=== PATIENT | male | born 1965 | race Caucasian/White ===

== ENCOUNTER 2019-01-01 21:43 | Inpatient (IN) | payer OTHER ==
[~2019-01-01] VITALS: Ht 190.5 cm; Wt 163.3 kg
[2019-01-01 21:58] VITALS: Ht 190.5 cm; Wt 163.3 kg
--- NOTE | 2019-01-01 22:36 | NUR ---
DR BALDWIN AT BEDSIDE FOR MSE.
--- NOTE | 2019-01-01 22:36 | NUR ---
ATTEMPTED IV ACCESS X2, UNSUCCESSFUL. MADE AWARE.
[2019-01-01] MEDS ORDERED: APAP500 MG PO (23:10)
[2019-01-01] MEDS ORDERED: ASPIR 8181 MG PO (23:11)
[2019-01-01] MEDS ORDERED: HYDRALAZINE HY100 MG PO (23:11)
[2019-01-01] MEDS ORDERED: NOR5 PO (23:11)
[2019-01-01] MEDS ORDERED: ISO300 PO (23:12)
[2019-01-01] MEDS ORDERED: ZESTRIL40 MG PO (23:13)
[2019-01-01] MEDS ORDERED: XOPENEX HF0.045 MG/1 IH ×2 (23:13)
[2019-01-01] MEDS ORDERED: METOPROLOL TART50 MG PO (23:16)
[2019-01-01] MEDS ORDERED: LIALDA1.2 GM PO (23:16)
[2019-01-01] MEDS ORDERED: VITAMIN B-650 M1 PO (23:17)
[2019-01-01] MEDS ORDERED: PRIFTIN150 MG PO (23:17)
[2019-01-01] MEDS ORDERED: ASMANEX TW0.22 MG/A1 IH (23:17)
[2019-01-01] MEDS ORDERED: DYA PO (23:18)
--- NOTE | 2019-01-01 23:21 | NUR ---
CABLE REELER AT BEDSIDE FOR BLOOD DRAW.
[2019-01-01 23:34] LABS: BASOPHIL % 1.1 % (0-2); PLATELET COUNT 204 x10^3mcL (130-400)
[2019-01-01 23:42] LABS: CALCIUM 9.1 mg/dL (8.5-10.1); CARBON DIOXIDE 29.7 mmol/L (21-32); CHLORIDE SERUM 106 mmol/L (98-107); CREATININE SERUM 0.9 mg/dL (0.7-1.3); GFR1 > 60 mL/min; GLUCOSE SERUM 90 mg/dL (74-106); POTASSIUM SERUM 4.3 mmol/L (3.5-5.1); SODIUM SERUM 143 mmol/L (136-145)
[2019-01-01 23:46] LABS: RED CELL DISTRIBUTION WIDTH 14.7 % (11.5-14.5)
[2019-01-01 23:47] LABS: ALBUMIN 3.7 g/dL (3.4-5.0); ALKALINE PHOSPHATASE 64 U/L (46-116); ALT/SGPT 22 U/L (16-63); AST/SGOT 19 U/L (15-37); BILIRUBIN TOTAL 0.3 mg/dL (0.20-1.00); TOTAL PROTEIN, SERUM 7.7 g/dL (6.4-8.2)
--- NOTE | 2019-01-01 23:59 | NUR ---
PT GIVEN NITRO SL FOR 4/10 CHEST PAIN. B/P 159/91 (129).
[2019-01-02] VITALS (13 sets, daily range): BP systolic 98–156; BP diastolic 39–101
--- NOTE | 2019-01-02 00:03 | NUR ---
AFTER RECEIVING 1 DOSE OF NITRO PAIN HAS DECREASED PAIN, 2/10. PT STATES HE DOESN'T WANT ANOTHER DOSE, PAIN LEVEL TOLERABLE.
--- NOTE | 2019-01-02 01:16 | NUR ---
PT CALM IN BED AT THIS TIME. PT STATES NO CHEST PAIN AT THIS TIME. BREATHING EVEN AND UNLABORED. NO SOB NOTED. AAOX4, SPEECH CLEAR. WILL GIVE REPORT FOR PT TRANSFER.
--- NOTE | 2019-01-02 01:24 | NUR ---
GAVE REPORT TO CRUZ KINNEY. ALL QUESTIONS AND CONCERNS ADDRESSED.
[2019-01-02 01:56] LABS: CHOLESTEROL/HDL RATIO 5.3; MAGNESIUM 2.2 mg/dL (1.8-2.4)
--- NOTE | 2019-01-02 02:10 | NUR ---
PT TRANSFERRED TO TELE FLOOR. ACCOMPANIED BY EMT, NURSE, AND [facility] OFFICERS. NO S/SX OF DISTRESS NOTED. RESPIRATIONS E/U. IV SITE PATENT, NO SIGNS OF INFILTRATION. PT CONNECTED TO FRONT MAKER LOCKSTITCH DURING TRANSFER. RN AT BEDSIDE TO ASSUME CARE.
--- NOTE | 2019-01-02 02:20 | NUR ---
[facility] BY ER STAFFS WITH THE CHIEF COMPLAINTS OF CHEST PAIN X 3DAYS. PLACED COMFORTABLY IN BED. ROUTINE ADMISSION CARE RENDERED. VITAL SIGNS TAKEN AND RECORDED. ON TELE #11 SJOW NST AT 67=79/MIN. DENIES ANY CHEST PAIN/DISCOMFORT AT THIS TIME. IV SITE AT THE LAC G#20 INTACT AND PATENT. NO REDNESS/SWELLING NOTED. SDKIN WARM AND DRY TO [facility]. NO SKIN BREAKDOWN NOTED. WILL CONTINUE TO MONITOR.
--- NOTE | 2019-01-02 03:17 | NUR ---
BP UPON ADM TO THE PINZ=[phone]. PT STATED VERY ANXIOUS, ASKING FOR ANXIETY PILL/SLEEPING PILL, ATIVAN 1MG PO GIVEN/AMBIEN TAB GIVEN PO REQUESTED. MORPHINE 2MG IVP ON SCALE 8/10 GOT GENERALIZED BODY PAIN. KEPT CLEAN AND DRY.
--- NOTE | 2019-01-02 03:50 | NUR ---
BP CHECKED 143/85, PAIN LEVEL 0/10, KEPT CLEAN AND DRY. ALL NEEDS ATTENDED.
--- NOTE | 2019-01-02 06:20 | NUR ---
TOLERATED ORAL FLUIDS. NO S/S OF ASPIRATION NOTED. DENEIS ANY CHEST PAIN/DISCOMFORT AT THIS TIME, ALL NEEDS ATTENDED.
--- NOTE | 2019-01-02 07:50 | NUR ---
PATIENT RESTING IN BED. NO ACUTE RESP DISTRESS NOTED, TELE MONITOR IN PLACE. PATIENT DENIES CHEST PAIN. PATIENT C/O PAIN 05/13, WILL MEDICATED PER PROTOCOL. TRACE OF EDEMA NOTED TO LUE. GENERALIZED WEAKNESS NOTED. IV TO TO LAC SALINE LOCK. PATIENT IS SHACKLED TO LLE, [facility]IM X2 AT BEDSIDE. CALL LIGHT WITHIN REACH, BED IN LOW POSITION, WILL CONTINUE TO MONITOR.
--- NOTE | 2019-01-02 09:20 | NUR ---
PHOTOGRAPHY TEACHER AT BEDSIDE.
--- NOTE | 2019-01-02 19:30 | NUR ---
PATIENT IS RESTING IN BED, NO ACUTE ACUTE CHANGES THROUGH OUT SHIFT, PATIENT IS STABLE. PATIENT IV TO LAC BECAME INFILTRATED, ATTEMPTED TO REINSERT IV X2, WAS NOT ABLE TO INSERT NEW IV, ENDORSE REPORT TO NIGHT NURSE. CALL LIGHT WITHIN REACH, BED IN LOW POSITION, [facility]IM X2 FOR SAFETY PRECAUTION
--- NOTE | 2019-01-02 20:09 | NUR ---
RECEIVED PATIENT IN BED AWAKE,ALERT AND ORIENTED WITH NO C/O CHEST DISCOMFORT AT THIS TIME. TELE# 11 NSR ON MONITOR. RESPIRATION EVEN AND NONLABOR SATTING AT 96% RA. URINE COLLECTED FOR UA, URC AND UDS AND SENT TO LAB. IV TO LAC ACCIDENTALLY PULLED WHILE PATIENT SLEEPING. WILL REINSERT. CALL LIGHT WITHIN REACH. [facility] OFFICERS AT BEDSIDE. WILL CONTINUE TO MONITOR.
[2019-01-02 21:52] LABS: microscopic required? NO
[2019-01-02 21:57] LABS: urine erythrocyte NEGATIVE (NEGATIVE)
--- NOTE | 2019-01-02 22:00 | NUR ---
C/O HEADACHE MEDICATED WITH TYLENOL 650MG PO PRESCRIBED. WILL CONTINUE TO MONITOR.
[2019-01-02 22:03] LABS: AMPHETAMINE QUAL UR NONE DETECTED (See below)
--- NOTE | 2019-01-02 22:25 | NUR ---
IV REINSERTED TO LEFT WRIST INTACT AND HEPLOCKED. WILL CONTINUE TO MONITOR.
--- NOTE | 2019-01-02 22:26 | NUR ---
SENT MESSAGE TO [facility] TO HOLD LUNCH. PATIENT FOR STRESS TEST AT 1300 01/03/19. PATIENT MADE AWARE.
--- NOTE | 2019-01-03 00:23 | NUR ---
APPEARS SLEEPING THIS TIME, BREATHING EASY AND NONLABOR. WILL CONTINUE TO MONITOR.
[2019-01-03 04:59] VITALS: BP 139/84
--- NOTE | 2019-01-03 05:10 | NUR ---
SLEPT AT LONG INTERVALS. DENIES CHEST DISCOMFORT THE ENTIRE SHIFT. ALL NEEDS ATTENDED.
--- NOTE | 2019-01-03 07:20 | NUR ---
RECIEVED PT FROM NIGHT NURSE. PT IS LAYING DOWN IN BED WITH HOB UP. RESPIRATIONS EVEN AND UNLABORD ON ROOM AIR. PT LOOKS TO BE IN NO ACUTE DISTRESS AND DENIES ANY CHEST PAIN AT THIS TIME. PT IS COMPLAINING OF A MARIE. IV SITE PATENT WITH NO SIGNS OF ERYTHEMA OR SWELLING, IV H/L. BED IN LOWEST POSITION. OFFICERS AT BEDSIDE, CALL LIGHT WITHIN REACH. WILL CONTINUE TO MONITOR.
[2019-01-03 07:58] LABS: BASOPHIL % 0.7 % (0-2); PLATELET COUNT 157 x10^3mcL (130-400)
[2019-01-03 08:00] LABS: RED CELL DISTRIBUTION WIDTH 14.7 % (11.5-14.5)
[2019-01-03 08:18] LABS: CALCIUM 9.2 mg/dL (8.5-10.1); CARBON DIOXIDE 25.6 mmol/L (21-32); CHLORIDE SERUM 103 mmol/L (98-107); CREATININE SERUM 0.7 mg/dL (0.7-1.3); GFR1 > 60 mL/min; GLUCOSE SERUM 83 mg/dL (74-106); SODIUM SERUM 138 mmol/L (136-145)
[2019-01-03 10:00] VITALS: BP 128/81
--- NOTE | 2019-01-03 10:51 | NUR ---
PT RESTING WITH EYES CLOSE. PT LOOKS TO BE IN NO ACUTE DISTRESS AT THIS TIME. WILL CONTINUE TO MONITOR FOR PAIN. CALL LIGHT WITHIN REACH. OFFICERS AT BEDSIDE.
[2019-01-03 14:21] VITALS: BP 117/78
[2019-01-03 15:20] VITALS: BP 117/78
--- NOTE | 2019-01-03 15:30 | NUR ---
PT RETURNED FROM [employer]. PT IS LAYING DOWN IN BED WITH HOB BED. PT COMPLAINING OF A MARIE THAT HE STATES WAS AGRIVATED BY THE STRESS TEST. WILL MEDICATE ACCORDING TO EMAR.
[2019-01-03 17:13] VITALS: BP 104/72
--- NOTE | 2019-01-03 18:13 | NUR ---
PT IS LAYING DOWN IN BED WATCHING TV. PT LOOKS TO BE IN NO ACUTE DISTRESS AND STATES PAIN IS TOLERABLE AT THIS TIME. PT DENIES ANY CHEST PAIN AT THIS TIME. IV SITE PATENT WITH NO SIGNS OF ERYTHEMA OR SWELLING. BED IN LOWEST POSITION, CALL LIGHT WITHIN REACH. OFFICERS AT BEDSIDE. WILL ENDORSE TO ONCOMING SHIFT.
--- NOTE | 2019-01-03 19:56 | NUR ---
PT RECIEVED AAO REG RESP NO SOB V/S STABLE,HL TO THE LT WRIST WITH THE SITE PATENT AND INTACT,PT RESTING IN THE BED WITH TWO GUARDS IN THE ROOM,PT ON TELE MONITOR AND IN NSR NO ECTOPY OR CHEST PAIENT THIS TIME,BED IN THE LOW POSITIONAND LOCKED,KEPT CLEAN AND DRY TO TOUCH AND WILL CONTINUE TO MONITOR.
--- NOTE | 2019-01-03 21:15 | NUR ---
PT WITH C/O OF H/A ARCHING IN NATURE AT THE SCALE OF 6/10.PT WAS MEDICATED WITH NORCO 1 TAB PO ORDER AND WILL CONTINUE TO MONITOR.
[2019-01-03 21:19] VITALS: BP 112/74
[2019-01-04 05:55] VITALS: BP 111/63
--- NOTE | 2019-01-04 06:48 | NUR ---
PT HAD A RESTING NIGHT NO CHANGE AT THIS TIME AND WILL REYES NUE TO MONITOR.
--- NOTE | 2019-01-04 07:33 | NUR ---
RECEIVED BEDSIDE REPORT. PT. AWAKE/OX4 ON INITIAL ROUNDS. NOT IN ANY DISTRESS. LAW WITH CANE AT BEDSIDE. DENIES ANY CP/SOB. NOTED BLE EDEMA AND SCROTAL EDEMA. INSTRUCTED TO CALL RN FOR ANY NEED. CALL LIGHT WITHIN REACH. BED LOW AND LOCKED.
[2019-01-04 09:30] VITALS: BP 113/70
--- NOTE | 2019-01-04 11:10 | NUR ---
IN BED. NOT IN ANY DISTRESS. WILL REASSESS FOR PAIN MED EFFECT IN A FEW MINUTES. CALL CASAREZ WITHIN REACH. SIDERAILS UP
--- NOTE | 2019-01-04 12:29 | NUR ---
ASLEEP. NOT IN ANY DISTRESS. INSTRUCTED TO CALL RN FOR ANY NEEDS.
[2019-01-04 13:44] VITALS: BP 110/73
--- NOTE | 2019-01-04 16:25 | NUR ---
PT RESTING IN BED, NO RESPIRATORY DSITRESS NOTED, DENIES PAIN, CALL LIGHT WITHIN REACH. JOEY AT BEDSIDE.
--- NOTE | 2019-01-04 17:30 | NUR ---
IN BED RESTING. DENIES ANY CP OR SOB. INSTRUCTED TO CALL FOR ASSIST. CALL CASAREZ WITHIN REACH. BED LOW AND LOCKED.
[2019-01-04 17:44] VITALS: BP 114/41
--- NOTE | 2019-01-04 19:18 | NUR ---
REPORT GIVEN TO GREGORIA VAZQUEZ. PATIENT IN BED RESTING. NOT IN ANY DISTRESS. CALL CASAREZ WITHIN REACH. BED LOW AND LOCKED.
--- NOTE | 2019-01-04 19:20 | NUR ---
RECEIVED PT FROM PREVIOUS SHIFT NURSE. PT AOX4. TELE #11, SR, HR 60. DENIES CP/PRESSURE. NO SOB/DIFFICULTY BREATHING ON RA. IV TO L. WRIST, INTACT AND PATENT. BED IN LOWEST POSITION. CALL LIGHT WITHIN REACH. WILL CONTINUE TO MONITOR.
[2019-01-04 20:29] VITALS: BP 110/65
--- NOTE | 2019-01-05 01:42 | NUR ---
PT RESTING IN BED. RR EVEN AND UNLABORED. NO ACUTE DISTRESS NOTED. CALL LIGHT WITHIN REACH. BED IN LOWEST POSITION. WILL CONTINUE TO MONITOR.
[2019-01-05 05:32] VITALS: BP 102/69
[2019-01-05 07:42] VITALS: BP 120/78
--- NOTE | 2019-01-05 07:43 | NUR ---
A+OX4, NO RESPIRATORY DSITRESS NOTED, TELE 11, DENIES CHEST PAIN, PULSES MODERATE AND EQUAL SALBADOR, TRACE EDEMA BUE, LUNG SOUNDS CTA, TOLERATING RA, BOWEL SOUNDS ACTIVE, VOIDING FREELY, AMBULATORY, SKIN INTACT, IV IN L WRIST SALINE LOCKED, SITE WNL.
--- NOTE | 2019-01-05 07:59 | NUR ---
ENDORSED FROM NT SHIFT CHARGE [place]EX[place] RESULTED. CALLED AND SPOKE TO AND MADE HIM AWARE OF RESULT, SAYS TO NOTIFY OF RESULT AND PLAN WILL BE PER JR. SYSTEMS ADMINISTRATOR. CALLED TO AND LEFT A VOICE MESSAGE, WILL AWAIT FOR RETURN CALL TO NOTIFY HIM OF RESULT. BENJAMIN IRWIN ASSIGNED TO THIS PT MADE AWARE OF ABOVE.
--- NOTE | 2019-01-05 08:51 | NUR ---
RECEIVED A CALL BACK FROM AND MADE HIM AWARE OF [place]EXISC[place] RESULT. NEW ORDER RECEIVED AND HE SAYS PT IS OKAY TO DISCHARGE BACK TO [facility] AND HE'S CLEARING PT FOR DISCHARGE IN CARDIAC STANDPOINT. BENJAMIN KINNEY ASSIGNED TO THIS PT MADE AWARE OF ABOVE.
--- NOTE | 2019-01-05 08:56 | NUR ---
CALLED AND SPOKE TO AND UPDATED HIM OF (AURIST) ORDER THAT PT IS OKAY TO DISCHARGE BACK TO [facility]. ORDERED IT'S OKAY TO DISCHARGE PT BACK TO [facility]. BENJAMIN RN ASSIGNED TO THIS PT MADE AWARE OF ABOVE.
[2019-01-05 08:58] VITALS: BP 120/78
--- NOTE | 2019-01-05 09:13 | NUR ---
PT RESTING IN BED, NO RESPIRATORY DSITRESS NOTED, DENIES CHEST PAIN, GAURD AT BEDSIDE, CALL LIGHT WIHTIN REACH.
--- NOTE | 2019-01-05 09:35 | NUR ---
DC INSTRUCTIONS GIVEN TO PT, PT VERBALIZED UNDERSTANDING. QUINTON AT BEDSIDE NOTIFIED THAT PT IS READY TO BE DC AND TAKEN BACK TO [facility]. PT DC INSTRUCTIONS GIVEN TO QUINTON IN [employer]. QUINTON STATED HE WOULD CALL [facility] FOR TRANSPORT.
--- NOTE | 2019-01-05 11:23 | NUR ---
IV REMOVED WITH CATHETER INTACT, PRESSURE PLACED ON SITE, GAUZE AND TAPE PLACED ON SITE, NO SWELLING OR ERYTHEMA TO SITE. TELE REMOVED AND RETURNED TO [facility]. JOEY PLACING PT IN [facility] GARMENT.
--- NOTE | 2019-01-05 12:35 | NUR ---
PT OFF UNIT VIA WHEELCHAIR WITH ALL BELONGINGS ESCORTED BY CYNTHIA AND JOEY.
== END 2019-01-05 11:28 | disposition other institution (70) | DRG 313 ==
LOC: ED 21:43 → DU 01-02 00:38
PROVIDERS: Emergency Medicine; ADMIT Internal Medicine
DX: R07.89 Other chest pain (principal); Z68.42 Body mass index [BMI] 45.0-49.9, adult; I25.10 Atherosclerotic heart disease of native coronary artery without angina pectoris; R09.1 Pleurisy; B18.2 Chronic viral hepatitis C; I10 Essential (primary) hypertension; J44.9 Chronic obstructive pulmonary disease, unspecified; Z79.82 Long term (current) use of aspirin; Z79.899 Other long term (current) drug therapy; Z86.711 Personal history of pulmonary embolism; Z87.891 Personal history of nicotine dependence; Z20.1 Contact with and (suspected) exposure to tuberculosis; Z86.718 Personal history of other venous thrombosis and embolism; Z86.73 Personal history of transient ischemic attack (TIA), and cerebral infarction without residual deficits; E66.9 Obesity, unspecified; Z71.3 Dietary counseling and surveillance
CPT/HCPCS: 36600; 83880; 85378; A9500; J1644; J2270; J2785; J7030; Q0092; Q9967